=== PATIENT | female | born 1990 | race Two or more races ===

== ENCOUNTER 2016-10-18 01:14 | Outpatient (CLI) | payer OTHER, MEDICAID ==
[2016-10-18 02:29] LABS: APPEARANCE,URINE CLOUDY; BILIRUBIN,URINE NEGATIVE (NEGATIVE); GLUCOSE, URINE NEGATIVE (NEGATIVE); KETONES,URINE NEGATIVE (NEGATIVE); LEUKOCYTE ESTERASE,URINE NEGATIVE (NEGATIVE); NITRITE,URINE NEGATIVE (NEGATIVE); PROTEIN,URINE NEGATIVE (NEGATIVE); URINE SPECIFIC GRAVITY 1.021; UROBILINOGEN,URINE NEGATIVE mg/dL (<2.0)
[2016-10-18 02:44] LABS: URINE BARBITURATES SCREEN NEGATIVE; URINE METHADONE SCREEN NEGATIVE; URINE OPIATES LOW NEGATIVE; URINE PHENCYCLIDINE SCREEN NEGATIVE
--- NOTE | 2016-10-18 02:47 | Non Stress Test Report ---
Non Stress Test Datetime Report Generated by CPN: 10/18/2016 02:47 DEMOGRAPHIC EGA NST: 39.0 INDICATION Indication for Study: Ordered by Provider Indication for Study (NST) Other: LC MONITORING Monitor Explained: Monitor Explained; Test Explained; Patient Verbalized Understanding Time on Monitor: 10/18/2016 01:30 Time off Monitor: 10/18/2016 02:42 NST Duration: 72 NST INTERVENTIONS NST Interventions: PO Hydration BABY A: [id number] BABY A Movement : Present Contraction Frequency : none FHR Baseline : 125 Accelerations : 15X15 Decelerations : None Variability : Moderate 6-25bpm NST Review: Meets Criteria for Reactive NST NST Review and Verified By : APOLINAR HIDALGO Results: Reactive (Annotations: Data stored by CPN on behalf of user) NST REPORT Report Trigger: Send Report
== END 2016-10-18 02:54 | disposition home or self-care (01) ==
LOC: LC 01:14
PROVIDERS: ATTEND Obstetrics & Gynecology
PROC: 4A1HXCZ Monitoring of Products of Conception, Cardiac Rate, External Approach (ICD-10-PCS; principal; 2016-10-18)
DX: Z34.93 Encounter for supervision of normal pregnancy, unspecified, third trimester (principal); Z36 Encounter for antenatal screening of mother; Z3A.39 39 weeks gestation of pregnancy
CPT/HCPCS: 59025; 80307; 81005

== ENCOUNTER 2016-10-27 18:45 | Inpatient (IN) | payer OTHER, MEDICAID ==
[2016-10-27 19:46] LABS: APPEARANCE,URINE SLIGHTLY-CLOUDY; BILIRUBIN,URINE NEGATIVE (NEGATIVE); GLUCOSE, URINE NEGATIVE (NEGATIVE); KETONES,URINE NEGATIVE (NEGATIVE); LEUKOCYTE ESTERASE,URINE NEGATIVE (NEGATIVE); NITRITE,URINE NEGATIVE (NEGATIVE); PROTEIN,URINE 30 mg/dL (NEGATIVE); URINE SPECIFIC GRAVITY 1.021; UROBILINOGEN,URINE NEGATIVE mg/dL (<2.0)
[2016-10-27 19:52] LABS: ABSOLUTE EOSINOPHILS # (AUTO) 0.2 10^3/uL (0.0-0.6); ABSOLUTE LYMPHOCYTES (AUTO) 2.8 10^3/uL (0.5-4.7); ABSOLUTE NEUT (AUTO) 12.4 10^3/uL (1.7-8.2); BASOPHILS % (AUTO) 0.3 % (0-2); EOSINOPHILS % (AUTO) 1.2 % (0-6); HEMATOCRIT 38.6 % (36.0-47.0); HEMOGLOBIN 12.9 g/dL (12.0-15.5); HGB HCT DIFFERENCE 0.1; MEAN CORPUSCULAR HEMOGLOBIN 26.3 pg (27.0-33.4); MEAN CORPUSCULAR HGB CONC 33.4 g/dL (32.0-36.0); MEAN CORPUSCULAR VOLUME 79 fl (80-97); RED CELL DISTRIBUTION WIDTH 16.2 % (11.5-14.0); SEGMENTED NEUTROPHILS % (AUTO) 75.5 % (42-78); WHITE BLOOD COUNT 16.4 10^3/uL (4.0-10.5)
[2016-10-27 20:00] LABS: URINE BARBITURATES SCREEN NEGATIVE; URINE METHADONE SCREEN NEGATIVE; URINE OPIATES LOW NEGATIVE; URINE PHENCYCLIDINE SCREEN NEGATIVE
[2016-10-27] MEDS ORDERED: RINGERS SOLUTION,LACTATED 1,000 ML IV PRN (20:00)
[2016-10-27 20:05] LABS: ALANINE AMINOTRANSFERASE 30 U/L (9-52); ALBUMIN 3.3 g/dL (3.5-5.0); ALKALINE PHOSPHATASE 155 U/L (38-126); ANION GAP 10 (5-19); ASPARTATE AMINO TRANSFERASE 17 U/L (14-36); BILIRUBIN,DIRECT 0.2 mg/dL (0.0-0.4); BILIRUBIN,TOTAL 0.2 mg/dL (0.2-1.3); BLOOD UREA NITROGEN 11 mg/dL (7-20); CALCIUM 9.8 mg/dL (8.4-10.2); CARBON DIOXIDE 23 mmol/L (22-30); CHLORIDE 107 mmol/L (98-107); CREATININE RESULT 0.62 mg/dL (0.52-1.25); GLUCOSE 82 mg/dL (75-110); LDH 467 U/L (313-618); POTASSIUM 4.4 mmol/L (3.6-5.0); URIC ACID 4.3 mg/dL (2.5-6.2)
[2016-10-27] MEDS ORDERED: PENICILLIN G POTASSIUM 5,000,000 UNIT in DEXTROSE 5%-WATER 100 ML IV ONE (21:42)
[2016-10-27] MEDS: RINGERS SOLUTION,LACTATED 1,000 ML IV PRN (21:53)
[2016-10-27 22:49] LABS: URINE CREATININE 98.6 mg/dL (16-327); URINE PROTEIN 20.1 mg/dL (<12)
[2016-10-27] MEDS ORDERED: OXYTOCIN/NORMAL SALINE 1,000 ML IV PRN (23:23)
[2016-10-27] MEDS ORDERED: ACETAMINOPHEN 325 MG TABLET PO PRN (23:23)
[2016-10-27] MEDS ORDERED: DINOPROSTONE 10 MG VAGINAL INSERT.SR PV ONE (23:23)
[2016-10-27] MEDS ORDERED: MAG HYDROX/AL HYDROX/SIMETH SUSP 30 ML UDCUP PO PRN (23:23)
[2016-10-27] MEDS ORDERED: ZOLPIDEM TARTRATE 5 MG TABLET PO PRN ×2 (23:23→23:40)
[2016-10-27] MEDS ORDERED: DINOPROSTONE 10 MG VAGINAL INSERT.SR ONE (23:31)
[2016-10-27] MEDS ORDERED: ZOLPIDEM TARTRATE 5 MG TABLET ONE (23:47)
[2016-10-28] MEDS ORDERED: PENICILLIN G POTASSIUM 2,500,000 UNIT in DEXTROSE 5%-WATER 50 ML IV SCH ×2 (01:43→16:00)
[2016-10-28] MEDS ORDERED: OXYTOCIN/NORMAL SALINE 1,000 ML IV PRN (03:00)
[2016-10-28] MEDS ORDERED: PENICILLIN G POTASSIUM 5,000,000 UNIT in DEXTROSE 5%-WATER 100 ML IV PRN (12:00)
[2016-10-28] MEDS: RINGERS SOLUTION,LACTATED 1,000 ML IV PRN ×2 (12:28→17:53)
[2016-10-28] MEDS ORDERED: OXYTOCIN/NORMAL SALINE 20 UNIT/1,000 ML RTUINJ ONE (12:49)
--- NOTE | 2016-10-28 12:50 | L&D Progress Notes ---
PROGRESS NOTES Datetime Report Generated by CPN: 10/28/2016 12:50 PROGRESS NOTE Impression: Gest. HTN/PreEclampsia/Eclampsia Plan: Induction Comment: no preeclampsia sxs. Start pit. an dgbs prophylaxis. MEMBRANES Membranes: Intact FETUS A FHR Category: Category I : 40.2 Presentation: Vertex SIGNATURE SIGNATURE: [id number] SIGNATURE: [id number] Signature: with User ID: [email or web address] : I personally evaluated and examined the patient in conjunction with the MLP and agree with the assessment, treatment plan and disposition.
[2016-10-28] MEDS ORDERED: PENICILLIN G-K 5 MILLION UNIT VIAL ONE ×3 (12:54→21:32)
[2016-10-28 13:53] LABS: ABSOLUTE EOSINOPHILS # (AUTO) 0.3 10^3/uL (0.0-0.6); ABSOLUTE LYMPHOCYTES (AUTO) 2.6 10^3/uL (0.5-4.7); ABSOLUTE MONOCYTES (AUTO) 0.9 10^3/uL (0.1-1.4); BASOPHILS % (AUTO) 0.2 % (0-2); EOSINOPHILS % (AUTO) 1.8 % (0-6); HEMOGLOBIN 12.4 g/dL (12.0-15.5); HGB HCT DIFFERENCE -0.8; LYMPHOCYTES % (AUTO) 18.7 % (13-45); MEAN CORPUSCULAR HEMOGLOBIN 25.8 pg (27.0-33.4); MEAN CORPUSCULAR HGB CONC 32.5 g/dL (32.0-36.0); MEAN CORPUSCULAR VOLUME 79 fl (80-97); MONOCYTES % (AUTO) 6.4 % (3-13); RED BLOOD COUNT 4.81 10^6/uL (3.72-5.28); RED CELL DISTRIBUTION WIDTH 16.6 % (11.5-14.0); SEGMENTED NEUTROPHILS % (AUTO) 72.9 % (42-78); WHITE BLOOD COUNT 13.7 10^3/uL (4.0-10.5)
[2016-10-28 14:14] LABS: ALANINE AMINOTRANSFERASE 26 U/L (9-52); ALBUMIN 3.1 g/dL (3.5-5.0); ALKALINE PHOSPHATASE 156 U/L (38-126); ANION GAP 9 (5-19); ASPARTATE AMINO TRANSFERASE 19 U/L (14-36); BILIRUBIN,DIRECT 0.4 mg/dL (0.0-0.4); BILIRUBIN,TOTAL 0.4 mg/dL (0.2-1.3); BLOOD UREA NITROGEN 13 mg/dL (7-20); CALCIUM 9.4 mg/dL (8.4-10.2); CARBON DIOXIDE 20 mmol/L (22-30); CHLORIDE 108 mmol/L (98-107); CREATININE RESULT 0.57 mg/dL (0.52-1.25); GLUCOSE 82 mg/dL (75-110); LDH 405 U/L (313-618); POTASSIUM 4.2 mmol/L (3.6-5.0); SODIUM 136.8 mmol/L (137-145); TOTAL PROTEIN 5.9 g/dL (6.3-8.2); URIC ACID 4.1 mg/dL (2.5-6.2)
[2016-10-28] MEDS ORDERED: NALBUPHINE HCL INJ 10 MG/1 ML AMPULE ONE (15:02)
[2016-10-28] MEDS ORDERED: FENTANYL CITRATE INJ/PF 100 MCG/2 ML AMPUL ONE (16:05)
[2016-10-28] MEDS ORDERED: PHENYLEPHRINE HCL INJ/PF 10 MG/1 ML SDV ONE (16:05)
[2016-10-28] MEDS ORDERED: EPHEDRINE SULFATE INJ 50 MG/1 ML AMPULE ONE (16:05)
[2016-10-28] MEDS ORDERED: BUPIVACAINE HCL 0.25 % INJ/PF (2.5 MG/1 ML) 30 ML VIAL ONE (16:06)
[2016-10-28] MEDS ORDERED: FENTANYL/BUPIVACAINE/NS/PF 200 MCG/100 ML RTUINJ EPI ONE (16:06)
[2016-10-28] MEDS: PENICILLIN G-K 5 MILLION UNIT VIAL IV SCH ×2 (17:52→21:48)
[2016-10-28] MEDS ORDERED: MISOPROSTOL 0.1 MG TABLET PV ONE (20:26)
[2016-10-28] MEDS ORDERED: MISOPROSTOL 0.1 MG TABLET ONE (20:31)
--- NOTE | 2016-10-28 20:35 | L&D Progress Notes ---
PROGRESS NOTES Datetime Report Generated by CPN: 10/28/2016 20:35 PROGRESS NOTE Impression: Gest. HTN/PreEclampsia/Eclampsia Plan: Induction Vital Signs : Reviewed Comment: IUP with GHTN, hep C undergoing induction. No change and not strong ctx pattern on pit 20 mu but comfortable with epidural. Stop pit and place cytotec 25 mcg pr for mor ripening. FETUS A Monitoring: External US FHR Category: Category I FETUS C SIGNATURE: [id number] Signature: with User ID: [email or web address]
[2016-10-29] MEDS ORDERED: FENTANYL/BUPIVACAINE/NS/PF 200 MCG/100 ML RTUINJ EPI ONE ×2 (01:03→09:40)
[2016-10-29] MEDS ORDERED: PENICILLIN G-K 5 MILLION UNIT VIAL ONE ×3 (01:03→10:01)
[2016-10-29] MEDS: PENICILLIN G-K 5 MILLION UNIT VIAL IV SCH ×7 (01:21→23:26)
[2016-10-29] MEDS: RINGERS SOLUTION,LACTATED 1,000 ML IV PRN (01:25)
[2016-10-29] MEDS ORDERED: DIPHENHYDRAMINE HCL 50 MG/ML VIAL ONE (03:41)
[2016-10-29] MEDS ORDERED: NALBUPHINE HCL INJ 10 MG/1 ML AMPULE IV ONE (05:30)
[2016-10-29] MEDS ORDERED: NALBUPHINE HCL INJ 10 MG/1 ML AMPULE ONE (05:31)
--- NOTE | 2016-10-29 05:37 | L&D Progress Notes ---
PROGRESS NOTES Datetime Report Generated by CPN: 10/29/2016 05:36 PROGRESS NOTE Impression: Gest. HTN/PreEclampsia/Eclampsia Procedures: Artificial ROM Plan: Continue Present Management Comment: Pt with itching but comfortable with epidural. Currently on pit at 6 mu...cont induction, gbs prophylaxis. MEMBRANES Membranes: Ruptured Amniotic Fluid Color: Clear FETUS A Monitoring: External US FETUS C SIGNATURE: [id number] Signature: with User ID: [email or web address]
[2016-10-29] MEDS ORDERED: NALBUPHINE HCL INJ 10 MG/1 ML AMPULE INJ ONE (05:41)
[2016-10-29] MEDS ORDERED: DIPHENHYDRAMINE HCL 50 MG/ML VIAL IV ONE (05:45)
--- NOTE | 2016-10-29 05:53 | L&D Progress Notes ---
PROGRESS NOTES Datetime Report Generated by CPN: 10/29/2016 05:53 PROGRESS NOTE Impression: Gest. HTN/PreEclampsia/Eclampsia Procedures: Intrauterine Pressure Catheter Plan: Continue Present Management Comment: IUPC placed due to difficulty monitoring contractions with toco and concern for lates vs early decels. Discussed need for if repetitve lates. VAGINAL EXAM Dilatation: 3 Effacement: 90 Station: -1 FETUS C SIGNATURE: [id number] Signature: with User ID: [email or web address]
[2016-10-29 05:56] LABS: ABSOLUTE EOSINOPHILS # (AUTO) 0.2 10^3/uL (0.0-0.6); ABSOLUTE LYMPHOCYTES (AUTO) 3.1 10^3/uL (0.5-4.7); ABSOLUTE NEUT (AUTO) 13.4 10^3/uL (1.7-8.2); BASOPHILS % (AUTO) 0.3 % (0-2); HEMATOCRIT 38.7 % (36.0-47.0); HEMOGLOBIN 12.7 g/dL (12.0-15.5); HGB HCT DIFFERENCE -0.6; LYMPHOCYTES % (AUTO) 17.6 % (13-45); MEAN CORPUSCULAR HEMOGLOBIN 25.9 pg (27.0-33.4); MEAN CORPUSCULAR HGB CONC 32.8 g/dL (32.0-36.0); MEAN CORPUSCULAR VOLUME 79 fl (80-97); MONOCYTES % (AUTO) 5.5 % (3-13); RED CELL DISTRIBUTION WIDTH 16.2 % (11.5-14.0); SEGMENTED NEUTROPHILS % (AUTO) 75.6 % (42-78); WHITE BLOOD COUNT 17.7 10^3/uL (4.0-10.5)
[2016-10-29 06:08] LABS: ALANINE AMINOTRANSFERASE 26 U/L (9-52); ALKALINE PHOSPHATASE 147 U/L (38-126); ANION GAP 7 (5-19); ASPARTATE AMINO TRANSFERASE 26 U/L (14-36); BILIRUBIN,DIRECT 0.4 mg/dL (0.0-0.4); BILIRUBIN,TOTAL 0.5 mg/dL (0.2-1.3); BLOOD UREA NITROGEN 9 mg/dL (7-20); CALCIUM 9.2 mg/dL (8.4-10.2); CARBON DIOXIDE 20 mmol/L (22-30); CHLORIDE 107 mmol/L (98-107); CREATININE RESULT 0.53 mg/dL (0.52-1.25); GLUCOSE 73 mg/dL (75-110); SODIUM 134.1 mmol/L (137-145); TOTAL PROTEIN 6.1 g/dL (6.3-8.2)
[2016-10-29 07:36] LABS: URIC ACID 3.9 mg/dL (2.5-6.2)
[2016-10-29] MEDS ORDERED: HYDROXYZINE PAMOATE 50 MG CAPSULE ONE (09:11)
[2016-10-29] MEDS ORDERED: LIDOCAINE 1% INJ-PF (10 MG/ML) 30 ML SDV ONE (09:31)
[2016-10-29] MEDS ORDERED: MISOPROSTOL 0.2 MG TABLET ONE (09:31)
[2016-10-29] MEDS ORDERED: SODIUM BICARBONATE 8.4% INJ 50 MEQ/50 ML DISP.SYRIN ONE (09:34)
[2016-10-29] MEDS ORDERED: LIDOCAINE 2%/EPINEPHRINE INJ 20 ML VIAL ONE (09:34)
[2016-10-29] MEDS ORDERED: ACETAMINOPHEN 325 MG TABLET ONE (14:10)
[2016-10-29] MEDS ORDERED: OXYTOCIN/NORMAL SALINE 20 UNIT/1,000 ML RTUINJ ONE (14:10)
[2016-10-29] MEDS ORDERED: PROMETHAZINE HCL 25 MG TABLET PO PRN (14:27)
[2016-10-29] MEDS ORDERED: ACETAMINOPHEN 325 MG TABLET PO PRN (14:27)
[2016-10-29] MEDS ORDERED: PROMETHAZINE HCL INJ 25 MG/1 ML VIAL IV PRN (14:27)
[2016-10-29] MEDS ORDERED: MAGNESIUM HYDROXIDE SUSP 30 ML UDCUP PO PRN (14:27)
[2016-10-29] MEDS ORDERED: NA PHOS,M-B/NA PHOS,DI-BA (ADULT) 133 ML ENEMA PR PRN (14:27)
[2016-10-29] MEDS ORDERED: PROMETHAZINE HCL 25 MG SUPP.RECT PR PRN (14:27)
[2016-10-29] MEDS ORDERED: ACETAMINOPHEN 650 MG SUPP.RECT PR PRN (14:27)
[2016-10-29] MEDS ORDERED: DIPHENHYDRAMINE HCL 25 MG CAPSULE PO PRN (14:27)
[2016-10-29] MEDS ORDERED: DIPH/PERTUSS(ACELL)/TETANUS VAC/PF 0.5 ML SYR (>=10YO) IM PRN (14:27)
[2016-10-29] MEDS ORDERED: DIBUCAINE 1% OINTMENT 28 GM TP PRN (14:27)
[2016-10-29] MEDS ORDERED: PSEUDOEPHEDRINE HCL 30 MG TABLET PO PRN (14:27)
[2016-10-29] MEDS ORDERED: GLYCERIN/WITCH HAZEL LEAF 1 EACH MED..PAD TP PRN (14:27)
[2016-10-29] MEDS ORDERED: OXYTOCIN/NORMAL SALINE 1,000 ML IV PRN (14:27)
[2016-10-29] MEDS ORDERED: BENZOCAINE/MENTHOL AEROSOL SPRAY 56 ML TOP PRN (14:27)
[2016-10-29] MEDS ORDERED: MEASLES,MUMPS&RUBELLA VACC/PF 0.5 ML VIAL SUBCUT PRN (14:27)
[2016-10-29] MEDS ORDERED: ZOLPIDEM TARTRATE 5 MG TABLET PO PRN (14:27)
--- NOTE | 2016-10-29 14:36 | Delivery Summary ---
Del Sum A-C Datetime Report Generated by CPN: 10/29/2016 14:35 DELIVERY PERSONNEL DELIVERY PERSONNEL: [id number] Delivery Doctor:: Abril Mckenna CNM Nurse Medical Secretary Certified:: Brianna Mckenna CNM Labor and Delivery Nurse:: Niharika Colon RNtaxicab coordinator Nurse:: Anisha Olmedo RN Additional Personnel: : ADAMS Coffman MATERNAL INFORMATION Delivery Anesthesia: Epidural Medications After Delivery: Pitocin Drip 20 Units/1000ml NSS Estimated Blood Loss (ml): 150 Maternal Complications: Other Other Maternal Complications: Hep-c Provider Comments: Pt. with urge to push and found to be c/c/0. Began pushing and with much coaching went on to deliver a viable baby girl in DANIEL presention. Baby placed on maternal abdomen, vigorous respiratory and cry with tactile stimulation. Cord clamped x2 and cut by FOB after pulsation cessation. Cord blood obtained. Placenta delivered spontaneously intact. Fundus firm @ u-1 and bleeding stable. Vaginal and perineal inspection revealed small abrasion hemostatic as stated above. Mother and baby skin to skin, stable and bonding at this time. LABOR SUMMARY EDC: 10/25/2016 00:00 No. Babies in Womb: 1 Attempted: No Labor Anesthesia: Epidural LABOR INFORMATION Reason for Induction: Pre-Eclampsia; Oligohydramnios (Annotations: Data stored by CPN on behalf of user) Onset of Labor: 10/29/2016 09:15 Complete Dilatation: 10/29/2016 13:16 Cervical Ripening Agents: Cytotec @ 25 mcg PV Oxytocin: Induction Group B Beta Strep: positive Antibiotics # of Doses: 5 Antibiotics Time of Last Dose: 1009 Name of Antibiotic Given: PCN G Steroids Given: None Reason Steroids Not Administered: Not Applicable MEMBRANES Membranes Rupture Method: Artificial Rupture of Membranes: 10/29/2016 05:29 Length of Rupture (hr): 8.22 Amniotic Fluid Color: Clear Amniotic Fluid Amount: Scant Amniotic Fluid Odor: Normal STAGES OF LABOR Stage 1 hr: 4 Stage 1 min: 1 Stage 2 hr: 0 Stage 2 min: 26 Stage 3 hr: 0 Stage 3 min: 6 Total Time in Labor hr: 4 Total Time in Labor min: 33 VAGINAL DELIVERY Episiotomy: None Laceration Extension: N/A Laceration Type: None Other Laceration: vaginal abrasion-hemostatic Laceration Repair: Not Applicable Laceration Repair Note: n/a Sponge Count Correct: N/A Sharps Count Correct: Yes CSECTION DELIVERY Primary Indication: N/A Secondary Indication: N/A CSection Incidence: N/A Labor: N/A Elective: N/A CSection Incision: N/A BABY A INFORMATION Delivery Date/Time: 10/29/2016 13:42 Method of Delivery: Vaginal Born in Route : No : N/A Forceps: N/A Vacuum Extraction: N/A Shoulder Dystocia : No PRESENTATION/POSITION BABY A Presentation: Cephalic Cephalic Presentation: Vertex Vertex Position: Right Occipital Anterior Breech Presentation: N/A PLACENTA INFORMATION BABY A Placenta Delivery Time : 10/29/2016 13:48 Placenta Method of Delivery: Spontaneous Placenta Status: Delivered SCORES BABY A Heart Rate 1 min: >100 bpm Resp Effort 1 min: Good Cry Reflex Irritability 1 min: Cough or Sneeze or Pulls Away Muscle Tone 1 min: Active Motion Color 1 min: Body [place], Extremities Blue Resuscitation Effort 1 min: Tactile Stimulation SCORE 1 MIN: 9 Heart Rate 5 min: >100 bpm Resp Effort 5 min: Good Cry Reflex Irritability 5 min: Cough or Sneeze or Pulls Away Muscle Tone 5 min: Active Motion Color 5 min: Body [place], Extremities Blue Resuscitation Effort 5 min: Tactile Stimulation SCORE 5 MIN: 9 INFANT INFORMATION BABY A Gestational Age at Delivery: 40.4 Gestational Status: Full Term- 39- 40.6 Weeks Infant Outcome : Liveborn Condition : Stable Infant Sex: Female IDENTIFICATION BABY A Infant Verification Date/Time: 10/29/2016 13:59 ID Band Number: [id number] Mother's Name Verified: Yes Infant RN Verifying : RHamilton Castanocrista, RN/ DHamilton Seymour, APOLINARC WEIGHT/LENGTH BABY A Birthweight (gm): 2953 Infant Weight (lb): 6 Weight (oz): 8 Infant Length (in): 19.00 Infant Length (cm): 48.26 CORD INFORMATION BABY A No. Cord Vessels: 3 Nuchal Cord : N/A Cord Blood Taken: Yes-For Storage (Mom's Blood type +) Infant Suction: Mouth ASSESSMENT BABY A Infant Complications: Oligohydramnios Physical Findings at Delivery: Molding of the Head Respirations: Appears Normal Skin to Skin: Yes Logistic Specialist/ALS Called : No Care By: Genesis Seymour [facility] Transferred To: Nursery BABY B INFORMATION : N/A SIGNATURES Assignment: Osmin Chinchilla DO Signature: with User ID: [email or web address] : with User ID: [email or web address] : I personally evaluated and examined the patient in conjunction with the MLP and agree with the assessment, treatment plan and disposition.
--- NOTE | 2016-10-29 16:20 | Admission Physical ---
Datetime Report Generated by CPN: 10/29/2016 16:20 CURRENT ADMISSION Chief Complaint: Signs/Symptoms Gestational HTN Indication for Induction: Not Applicable Admit Impression- Other: Sent from [facility] for PIH labs _ SUSAN 4.9 cm Admit Plan: Admit to Unit ALLERGIES Medication Allergies: No Medication Allergies: No Known Allergies (10/18/2016) Medication Allergies: No Known Allergies (02/12/2012) Latex: No Latex Allergies Food Allergies: none Environmental Allergies: none OBSTETRICAL HISTORY EDC: 10/25/2016 00:00 : 1 Para: 0 Term: 0 : 0 SAB: 0 IAB: 0 Ectopic: 0 Livin Cesareans: 0 VBACs: 0 Multiple Births: 0 Gestational Diabetes: No Rh Sensitization: No Incompetent Cervix: No ROBERTA: No Infertility: No ART Treatment: No Uterine Anomaly: No IUGR: No Hx Previous C/S: No Macrosomia: No Hx Loss/Stillborn: No PIH: No Hx : No Placenta Previa/Abruption: No Depression/PP Depression: Yes PTL/PROM: No Post Hemorrhage: No Current Procedures: Ultrasound; NST Obstetrical History Comments: g1-current , IOL for oligohydraminos SEE RECORDS Alcohol: No Marijuana : Yes Marijuana Comments: positive UDS 10/27/2016 Cocaine: No Other Illicit Drugs: No Cigarettes: Current Everyday Smoker. [id number] MEDICAL HISTORY Diabetes: No Blood Transfusion: No Pulmonary Disease (Asthma, TB): No Breast Disease: No Hypertension: No Herbologist Surgery: No Heart Disease: No Hosp/Surgery: Yes Autoimmune Disorder: No Anesthetic Complications: No Kidney Disease: No Abnormal Pap Smear: No Neuro/Epilepsy: No Psychiatric Disorders: Yes Other Medical Diseases: No Hepatitis/Liver Disease: No Significant Family History: No Varicosities/Phlebitis: No Trauma/Violence : No Thyroid Dysfunction: No Medical History Comments: bipolar on prozac and abilify, obesity, tobacco abuse, + HCV antibodies, history of drug use heroin clean for two years INFECTIOUS HISTORY Gonorrhea: No Genital Herpes: No Chlamydia: No Tuberculosis: No Syphilis: No Hepatitis: Yes HIV/AIDS Exposure: No Rash or Viral Illness: No HPV: No Infectious History Comments: Hep C antibodies PHYSICAL EXAM General: Normal HEENT: Normal Neurologic: Normal Thyroid: Deferred Heart: Normal Lungs: Normal Breast: Deferred Back: Normal Abdomen: Normal Genitourinary Exam: Deferred Extremities: Normal DTRs: Normal Physical Exam Comments: Gravid Vital Signs: Reviewed VAGINAL EXAM Dilatation: 3 Effacement: 90 Station: -1 MEMBRANES Membranes: Ruptured Membranes: Intact Amniotic Fluid Color: Clear FETUS A EGA: 40.2 Monitoring: External US FHR- Baseline: 130 Accelerations: 15X15 FHR Category: Category I Presentation: Vertex Admit Comment: G1 B/P elevated at office today-denies any sx Obesity Bipolar-on meds Smoker Hepatitis C-no FSE Positive GBS test records available PLANS FOR LABOR AND DELIVERY Labor and Delivery: None Pain Management: Epidural Feeding Preference: Formula Benefit of Breast Feed Discussed: Yes Circumcision: N/A INFORMED CONSENT Assignment: Eliza Funez MD Signature: with User ID: [email or web address] : with User ID: [email or web address] : I personally evaluated and examined the patient in conjunction with the MLP and agree with the assessment, treatment plan and disposition.
[2016-10-29] MEDS: DOCUSATE SODIUM 100 MG CAPSULE PO SCH (17:48)
[2016-10-29] MEDS: FERROUS SULFATE 325 MG TABLET PO SCH (17:48)
[2016-10-29] MEDS: ACETAMINOPHEN WITH CODEINE #3 TABLET PO PRN ×2 (19:27→23:32)
[2016-10-29 21:07] LABS: HEPATITIS C QUANTITATION 56000 IU/mL (.)
[2016-10-29] MEDS: FAMOTIDINE 20 MG TABLET PO SCH (22:28)
[2016-10-29] MEDS: IBUPROFEN 800 MG TABLET PO SCH (22:28)
[2016-10-30] MEDS: PENICILLIN G-K 5 MILLION UNIT VIAL IV SCH ×3 (01:28→11:09)
[2016-10-30] MEDS: ACETAMINOPHEN WITH CODEINE #3 TABLET PO PRN ×4 (03:39→17:03)
[2016-10-30] MEDS: IBUPROFEN 800 MG TABLET PO SCH ×3 (06:30→22:12)
[2016-10-30 07:37] LABS: HEMATOCRIT 34.3 % (36.0-47.0); HEMOGLOBIN 11.5 g/dL (12.0-15.5); HGB HCT DIFFERENCE 0.2; MEAN CORPUSCULAR HEMOGLOBIN 26.5 pg (27.0-33.4); MEAN CORPUSCULAR HGB CONC 33.5 g/dL (32.0-36.0); MEAN CORPUSCULAR VOLUME 79 fl (80-97); RED BLOOD COUNT 4.34 10^6/uL (3.72-5.28); RED CELL DISTRIBUTION WIDTH 17.1 % (11.5-14.0); WHITE BLOOD COUNT 18.3 10^3/uL (4.0-10.5)
--- NOTE | 2016-10-30 08:18 | PDOC PROGRESS REPORT ---
Subjective-OB Subjective: Post Delivery Day: 25 year old. Denies any needs at this time Doing well, family at BS, bottle feeding, not wearing bra, scant lochia, eating well Physical Exam (OB) Vital Signs: Temp Pulse Resp BP Pulse Ox 98.5 F 83 18 126/72 H 100 10/29/16 19:52 10/29/16 19:52 10/29/16 19:52 10/29/16 19:52 10/29/16 19:52 - Lochia Lochia Amount: Small 10-25 ml Lochia Color: Rubra/Red - Abdomen Description: Tender, Soft, Round Hernia Present: No Fundal Description: Firm Fundal Height: u/3 - u/4 Objective-Diagnostic Laboratory: 10/30/16 07:22 10/29/16 05:30 10/30/16 07:22 WBC 18.3 H RBC 4.34 Hgb 11.5 L Hct 34.3 L MCV 79 L MCH 26.5 L MCHC 33.5 RDW 17.1 H Plt Count 233 Assessment and Plan(PN) - Assessment and Plan (1) GBS (group B Streptococcus carrier), +RV culture, currently Is this a current diagnosis for this admission?: Yes (2) Vaginal delivery Is this a current diagnosis for this admission?: Yes (3) Hepatitis C antibody test positive Is this a current diagnosis for this admission?: Yes (4) History of heroin abuse Is this a current diagnosis for this admission?: Yes - Time Spent with Patient Time with patient: Less than 15 minutes Medications reviewed and adjusted accordingly: Yes - Disposition Anticipated Discharge: Home Within: within 24 hours
[2016-10-30] MEDS: FAMOTIDINE 20 MG TABLET PO SCH ×2 (09:30→22:12)
[2016-10-30] MEDS: DOCUSATE SODIUM 100 MG CAPSULE PO SCH ×2 (09:30→17:03)
[2016-10-30] MEDS: FERROUS SULFATE 325 MG TABLET PO SCH ×2 (09:30→17:03)
[2016-10-30] MEDS: PRENATAL VITAMIN W-O CA NO5/FE FUMARATE/FA CAPSULE PO SCH (09:30)
[2016-10-31] MEDS: IBUPROFEN 800 MG TABLET PO SCH (06:34)
[2016-10-31] MEDS: ACETAMINOPHEN WITH CODEINE #3 TABLET PO PRN (07:28)
--- NOTE | 2016-10-31 07:46 | PDOC PROGRESS REPORT ---
Subjective-OB Subjective: Post Delivery Day: 25 year old. Denies any needs at this time Doing well, having afterbirth pains, wearing bra, scant lochia, ready to go home ,eating well Physical Exam (OB) Vital Signs: Temp Pulse Resp BP Pulse Ox 97.9 F 72 18 104/55 L 99 10/30/16 19:28 10/30/16 19:28 10/30/16 19:28 10/30/16 19:28 10/30/16 19:28 Intake & Output 10/30/16 10/31/16 11/01/16 06:59 06:59 06:59 Intake Total 720 Balance 720 - Lochia Lochia Amount: Small 10-25 ml Lochia Color: Rubra/Red - Abdomen Description: Soft, Round Hernia Present: No Fundal Description: Firm, Midline Fundal Height: u/u - u/2 Objective-Diagnostic Laboratory: 10/30/16 07:22 10/29/16 05:30 Assessment and Plan(PN) - Assessment and Plan (1) GBS (group B Streptococcus carrier), +RV culture, currently Is this a current diagnosis for this admission?: Yes (2) Vaginal delivery Is this a current diagnosis for this admission?: Yes (3) Hepatitis C antibody test positive Is this a current diagnosis for this admission?: Yes (4) History of heroin abuse Is this a current diagnosis for this admission?: Yes - Time Spent with Patient Time with patient: Less than 15 minutes Medications reviewed and adjusted accordingly: Yes - Disposition Anticipated Discharge: Home Within: Other - home today
--- NOTE | 2016-10-31 07:51 | PDOC DISCHARGE SUMMARY ---
Final Diagnosis Discharge Date: 10/31/16 - Final Diagnosis (1) GBS (group B Streptococcus carrier), +RV culture, currently Is this a current diagnosis for this admission?: Yes (2) Vaginal delivery Is this a current diagnosis for this admission?: Yes (3) Hepatitis C antibody test positive Is this a current diagnosis for this admission?: Yes (4) History of heroin abuse Is this a current diagnosis for this admission?: Yes Discharge Data - Discharge Medication Home Medications: Fluoxetine HCl [Prozac 20 mg Capsule] 40 mg PO DAILY 10/18/16 Prenat Vit Comb.10/Iron/FA/Dha [Vitafol-Ob+Dha Combo Pack] 1 each PO DAILY 10/18 Zolpidem Tartrate [Ambien 5 mg Tablet] 5 mg PO HSP PRN 10/27/16 Ibuprofen [Motrin 800 mg Tablet] 800 mg PO Q8 #30 tablet 10/31/16 Gestational Age: 40.4 Reason(s) for Admission: Induction of Labor, Obstetric Complications - oligohydramnios, pre-eclampsia Procedures: NST, Ultrasound Intrapartum Procedure(s): Spontaneous Vaginal Delivery - vaginal abrasion - [place] Data Baby 1 Female at 1 minute: 9 at 5 minutes: 9 Weight: 2.948 kg Home with Mother: Yes Complications: No - Diagnosis Test Laboratory: Temp Pulse Resp BP Pulse Ox 97.9 F 72 18 104/55 L 99 10/30/16 19:28 10/30/16 19:28 10/30/16 19:28 10/30/16 19:28 10/30/16 19:28 10/27/16 10/27/16 10/28/16 19:15 19:36 13:38 RBC 4.90 4.81 Hgb 12.9 12.4 Hct 38.6 38.0 Urine Opiates Screen NEGATIVE 10/29/16 10/30/16 05:30 07:22 RBC 4.90 4.34 Hgb 12.7 11.5 L Hct 38.7 34.3 L Urine Opiates Screen - Discharge information/Instructions Discharge Activity: Activity As Tolerated, No Lifting Over 10 Pounds, No Lifting /Push/Pulling Discharge Diet: As Tolerated, Regular Disposition: HOME, SELF-CARE Follow up with: [facility] in: 4, Weeks
[2016-10-31 08:25] VITALS: BP 129/78
[2016-10-31] MEDS: FERROUS SULFATE 325 MG TABLET PO SCH (09:00)
[2016-10-31] MEDS: DOCUSATE SODIUM 100 MG CAPSULE PO SCH (09:00)
[2016-10-31] MEDS: FAMOTIDINE 20 MG TABLET PO SCH (09:00)
[2016-10-31] MEDS: PRENATAL VITAMIN W-O CA NO5/FE FUMARATE/FA CAPSULE PO SCH (09:00)
== END 2016-10-31 10:58 | disposition home or self-care (01) | DRG 774 ==
LOC: LR 18:45 → 2S 10-29 16:18
PROVIDERS: ADMIT Student in an Organized Health Care Education/Training Program; ATTEND Student in an Organized Health Care Education/Training Program
PROC: 3E0P7GC Introduction of Other Therapeutic Substance into Female Reproductive, Via Natural or Artificial Opening (ICD-10-PCS; 2016-10-27)
PROC: 4A1HXCZ Monitoring of Products of Conception, Cardiac Rate, External Approach (ICD-10-PCS; 2016-10-27)
PROC: 3E033VJ Introduction of Other Hormone into Peripheral Vein, Percutaneous Approach (ICD-10-PCS; 2016-10-28)
PROC: 10E0XZZ Delivery of Products of Conception, External Approach (ICD-10-PCS; principal; 2016-10-29)
PROC: 10H07YZ Insertion of Other Device into Products of Conception, Via Natural or Artificial Opening (ICD-10-PCS; 2016-10-29)
PROC: 4A1H7CZ Monitoring of Products of Conception, Cardiac Rate, Via Natural or Artificial Opening (ICD-10-PCS; 2016-10-29)
PROC: 3E0234Z Introduction of Serum, Toxoid and Vaccine into Muscle, Percutaneous Approach (ICD-10-PCS; 2016-10-31)
DX: O14.94 Unspecified pre-eclampsia, complicating childbirth (principal); O98.42 Viral hepatitis complicating childbirth; O41.03X0 Oligohydramnios, third trimester, not applicable or unspecified; Z68.41 Body mass index [BMI] 40.0-44.9, adult; Z37.0 Single live birth; O99.324 Drug use complicating childbirth; O99.824 Streptococcus B carrier state complicating childbirth; O99.344 Other mental disorders complicating childbirth; B19.20 Unspecified viral hepatitis C without hepatic coma; O70.0 First degree perineal laceration during delivery; O99.334 Smoking (tobacco) complicating childbirth; F17.210 Nicotine dependence, cigarettes, uncomplicated; O99.214 Obesity complicating childbirth; E66.9 Obesity, unspecified; F12.90 Cannabis use, unspecified, uncomplicated; F31.9 Bipolar disorder, unspecified; Z3A.40 40 weeks gestation of pregnancy; Z79.899 Other long term (current) drug therapy; Z23 Encounter for immunization
CPT/HCPCS: 36415; 80053; 80307; 81005; 82570; 83615; 84156; 84550; 85025; 85027; 86592; 86850; 86900; 86901; 87522; 88307; 90707; G0480; J1200; J2300; J2370; J2540; J2590; J3010; J3490

== ENCOUNTER → 2016-11-16 | Outpatient (CLI) | payer OTHER, MEDICAID ==
--- NOTE | 2016-11-16 10:33 | WOMENS IMAGING REPORT ---
EXAM DESCRIPTION: U/S ABDOMEN LIMITED COMPLETED DATE/TIME: 11/16/2016 8:25 am REASON FOR STUDY: B18.2, CHRONIC VIRAL HEP C B18.2 CHRONIC VIRAL HEPATITIS C COMPARISON: None. TECHNIQUE: Dynamic and static grayscale images acquired of the abdomen and recorded on PACS. Brentono dereck selected color Doppler and spectral images recorded. LIMITATIONS: None. FINDINGS: PANCREAS: No masses. Visualized pancreatic duct normal caliber. LIVER: 16.5 cm. Normal echotexture. LIVER VASCULATURE: Normal directional flow of the main portal vein and hepatic veins. GALLBLADDER: The gallbladder is partially contracted. There are no stones. ULTRASOUND-DETECTED CARR'S SIGN: Negative. INTRAHEPATIC DUCTS AND COMMON DUCT: Common bile duct is normal at 3 mm. INFERIOR VENA CAVA: Normal flow. AORTA: The proximal aorta was normal. The mid and distal aorta were obscured by gas. RIGHT KIDNEY: Normal size, 11.9 x 5.6 x 6 cm. Normal echotexture. No stones, no masses, no hydrone phrosis. PERITONEAL AND RIGHT PLEURAL SPACE: No ascites or effusions. OTHER: No other significant findings. IMPRESSION: NORMAL RIGHT UPPER QUADRANT ULTRASOUND. TECHNICAL DOCUMENTATION: JOB ID: [id number] [employer]- All Rights Reserved
== END ==
LOC: WI 09:47
PROVIDERS: ATTEND Internal Medicine Gastroenterology
DX: B18.2 Chronic viral hepatitis C (principal)
CPT/HCPCS: 76705